=== PATIENT | male | born 1990 ===

== ENCOUNTER 2017-05-12 12:41 | Inpatient (IN) | payer OTHER ==
[2017-05-12 12:49] VITALS: O2SAT 100
[2017-05-12] MEDS ORDERED: Sodium Chloride 0.9% 1,000 ML IV STA ×2 (13:18→14:57)
--- NOTE | 2017-05-12 13:28 | ED PDOC ---
HPI: CCC, URI, Sore Throat Time Seen by Provider: 05/12/17 12:53 Chief Complaint (Nursing): Flu-like Symptoms Chief Complaint (Provider): Flu-like symptoms History Per: Patient, Family (sister) History/Exam Limitations: no limitations Onset/Duration Of Symptoms: Days (x1 month) Current Symptoms Are (Timing): Still Present Location Of Pain: Headache Associated Symptoms: Fever, Cough, Nausea, Vomiting, Other (rash) Ear Symptoms: Bilateral: None Severity: Mild Additional Complaint(s): Camron Abreu is a 26 year old male, with no past medical history, who presents to the emergency department accompanied by sister complaining of fever , cough, headache, loss of appetite, nausea, and pos-tussive vomiting x1 month, worse in the last week. Patient also reports a non itchy rash on his body since yesterday, and was noted to have a fever. He states he saw a PMD (Out of area) yesterday who gave him prescriptions for Z.pack, Certirazine and Prednisone. Per sister, patient was in so much pain and so weak this morning that he couldn' t stand up. He denies taking any medication for the fever, or receiving a flu shot this year. No other medical complaints. Pt denies nay diarrhea, neck pain chest pain or SOB. Pt given mask in triage and currently wearing in ED room PMD: located in [facility] Past Medical History Reviewed: Historical Data, Nursing Documentation, Vital Signs Vital Signs: Last Vital Signs Temp 101.7 F H 05/12/17 15:26 Pulse 103 H 05/12/17 14:53 Resp 20 05/12/17 14:52 BP 128/62 05/12/17 14:52 Pulse Ox 100 05/12/17 14:57 - Medical History PMH: No Chronic Diseases - Surgical History Surgical History: No Surg Hx - Family History Family History: States: Unknown Family Hx - Social History Current smoker - smoking cessation education provided: No Alcohol: None Drugs: Denies - Home Medications Home Medications: Ambulatory Orders Medication Instructions Recorded Azithromycin [Z-Jese] 250 mg PO DAILY 05/12/17 Cetirizine HCl [All Day Allergy] 10 mg PO DAILY 05/12/17 Prednisolone [Millipred] 20 mg PO DAILY 05/12/17 - Allergies Allergies/Adverse Reactions: Allergies Allergy/AdvReac Type Severity Reaction Status Date / Time No Known Allergies Allergy Verified 05/12/17 13:00 Review of Systems ROS Statement: Except As Marked, All Systems Reviewed And Found Negative Constitutional: Positive for: Fever Respiratory: Positive for: Cough Gastrointestinal: Positive for: Nausea, Vomiting, Other (loss of appetite) Skin: Positive for: Rash (non itchy) Neurological: Positive for: Headache Physical Exam - Reviewed Nursing Documentation Reviewed: Yes Vital Signs Reviewed: Yes - Physical Exam Appears: Positive for: Non-toxic, No Acute Distress Head Exam: Positive for: ATRAUMATIC, NORMAL INSPECTION, NORMOCEPHALIC Skin: Positive for: Normal Color, Warm, Dry Eye Exam: Positive for: Normal appearance ENT: Positive for: Normal ENT Inspection, TM Is/Are (WNL), Nasal Congestion. Negative for: Pharyngeal Erythema, Tonsillar Exudate, Tonsillar Swelling Neck: Positive for: Normal, Painless ROM, Supple Cardiovascular/Chest: Positive for: Regular Rate, Rhythm. Negative for: Murmur Respiratory: Positive for: Normal Breath Sounds. Negative for: Accessory Muscle Use, Wheezing, Respiratory Distress Extremity: Positive for: Normal ROM. Negative for: Pedal Edema, Deformity, Swelling Neurologic/Psych: Positive for: Alert, Oriented - Laboratory Results Result Diagrams: 05/12/17 14:44 05/12/17 13:25 - ECG O2 Sat by Pulse Oximetry: 100 (RA) Pulse Ox Interpretation: Normal Medical Decision Making Medical Decision Making: Initial Impression: Viral Syndrome/Influenza Initial Plan: T: 101.7 P 117 POX: 100% BP: 107/41 --EKG --Blood Cultures --VBG Shock pannel --Comp Metabolic Panel --CBC w/ differential --Chest two views (PA/LAT) [RAD] --Motrin tab 600 mg PO --Sodium Chloride 1,000 ml IV 999 mls/hr --Influenza A B --reevaluation IV access established and treatment initiated with Motrin and Acetaminophen for fever and body aches. IVF running EKG: ST at 103 bpm, Incomplete RBBB, no acute ST changes, as read by ED MD Lactate resulted on VBG WNL Lab contacted sports book writer, Hgb 4.3 Platelets 21 Pt without known history of anemia. denies any rectal bleeding. Case discussed with ED MD, Dr. Chau, who presented to see and evaluate Pt at bedside. Pt moved into main ED and placed on Isolation. Repeat CBC obtained, Hgb 3.8. CHEM WNL Trop (-) Influenza (-) Consent obtained for blood transfusion and arrangements made for ICU admission ~ Scribe Attestation: Documented by Karlo Liu, acting as a scribe for Zeina Niño PA-C. Provider Scribe Attestation: All medical record entries made by the Scribe were at my direction and personally dictated by me. I have reviewed the chart and agree that the record accurately reflects my personal performance of the history, physical exam, medical decision making, and the department course for this patient. I have also personally directed, reviewed, and agree with the discharge instructions and disposition. Disposition - Clinical Impression Clinical Impression: Viral syndrome, Anemia - Patient ED Disposition Is Patient to be Admitted: Yes - Disposition Disposition Time: 15:40 Condition: FAIR Forms: [employer] (Jamaican)
[2017-05-12 14:26] LABS: ALB/GLOB RATIO 1.2 (1.0-2.1); ALBUMIN 3.5 g/dL (3.5-5.0); ALT/SGPT 31 U/L (21-72); AST/SGOT 32 U/L (17-59); BLOOD UREA NITROGEN 20 mg/dl (9-20); CALCIUM 8.6 mg/dL (8.4-10.2); GFR AFRICAN-AMERICAN > 60; GFR NON-AFRICAN AMERICAN > 60
[2017-05-12 14:52] LABS: VENOUS BLOOD GAS BASE EXCESS 2.4 mmol/L (0.0-2.0); VENOUS BLOOD GAS PCO2 38 mmHg (40-60); VENOUS BLOOD GAS PO2 26 mm/Hg (30-55); VENOUS BLOOD PH 7.45 (7.32-7.43)
[2017-05-12 14:56] LABS: BASO % 0.4 % (0.0-2.0); EOS % 0.5 % (0.0-4.0); LYMPH # 5.3 K/uL (1.0-4.3); LYMPH % 92.6 % (20.0-40.0); MEAN CORPUSCULAR HEMOGLOBIN 28.7 pg (27.0-31.0); MEAN CORPUSCULAR HGB CONC 35.1 g/dL (33.0-37.0); MEAN PLATELET VOLUME 6.4 fl (7.2-11.7); MONO # 0.1 K/uL (0.0-0.8); MONO % 2.6 % (0.0-10.0); NEUT # 0.2 K/uL (1.8-7.0); NEUT % 3.9 % (50.0-75.0); NRBC % 0.3 % (0.0-0.0); RBC 1.31 Mil/uL (4.40-5.90); WHITE BLOOD COUNT 5.7 K/uL (4.8-10.8)
[2017-05-12 15:03] LABS: BASO % 0.7 % (0.0-2.0); EOS % 0.5 % (0.0-4.0); LYMPH # 6.2 K/uL (1.0-4.3); MEAN CELL VOLUME 82.4 fl (80.0-94.0); MEAN CORPUSCULAR HGB CONC 35.2 g/dL (33.0-37.0); MEAN PLATELET VOLUME 6.3 fl (7.2-11.7); MONO # 0.1 K/uL (0.0-0.8); MONO % 1.4 % (0.0-10.0); NEUT # 0.3 K/uL (1.8-7.0); NEUT % 4.4 % (50.0-75.0); NRBC % 0.3 % (0.0-0.0); RBC 1.51 Mil/uL (4.40-5.90); WHITE BLOOD COUNT 6.7 K/uL (4.8-10.8)
[2017-05-12 15:15] LABS: HEMOGLOBIN 3.8 g/dL (12.0-18.0); PLATELET COUNT 21 K/uL (130-400)
[2017-05-12 15:17] LABS: HEMOGLOBIN 4.4 g/dL (12.0-18.0)
--- NOTE | 2017-05-12 16:05 | CP.PCM.HP ---
History of Present Illness - History of Present Illness History of Present Illness: CC: nausea and vomiting HPI: 26 year old male no past medical history, except for childhood hx of frequent epistaxis, no recent travel, no sick contacts or contacts who have traveled recently, presents with a 3 day history of severe worsening fatigue and generalized weakness, associated with dyspnea on exertion, nausea, NBNB emesis, anorexia. In the emergency room pt Tmax 101.7, HR 103-109, BP 128/62, saturating 100% RA. WBC 5.7 with lymph predominance, H/H 3.8/10.8, plt 21, PBS pending, normal renal function, TBili 1.9. Influenza neg, blood and urine cultures pending. Discussed with ER physician, Infectious Disease, and Hematology Oncology consulted as well. HD stable, NAD, admit to telemetry for further management. ROS: per HPI all other systems reviewed and negative. 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, works in restaurant, preps food Meds: none NKDA vitals reviewed GEN: +PALLOR, thin, WDWN, ALERT, COOPERATIVE HEENT: NCAT, PERRL, EOMI, mild scleral icterus HEART: RRR, +S1S2, NO MRG LUNG: CTAB, NO WRR ABD: SOFT, NT, ND, NO HSM, NO MASSES EXT: NORMAL PEDAL PULSES, GOOD CAPILLARY REFILL NEURO: AAOX3, STRENGTH EQUAL BILATERAL UPPER AND LOWER EXTREMITIES SKIN: WARM, DRY, +petechiae chest, abd, extremities PSYCH: NORMAL MOOD, NORMAL AFFECT Most Recent Lab Values WBC 5.7 K/uL (4.8-10.8) 05/12/17 14:44 RBC 1.31 Mil/uL (4.40-5.90) L 05/12/17 14:44 Hgb 3.8 g/dL (12.0-18.0) L* 05/12/17 14:44 Hct 10.8 % (35.0-51.0) L 05/12/17 14:44 MCV 82.0 fl (80.0-94.0) 05/12/17 14:44 MCH 28.7 pg (27.0-31.0) 05/12/17 14:44 MCHC 35.1 g/dL (33.0-37.0) 05/12/17 14:44 RDW 16.0 % (11.5-14.5) H 05/12/17 14:44 Plt Count 21 K/uL (130-400) L* 05/12/17 14:44 MPV 6.4 fl (7.2-11.7) L 05/12/17 14:44 Neut % (Auto) 3.9 % (50.0-75.0) L 05/12/17 14:44 Lymph % (Auto) 92.6 % (20.0-40.0) H 05/12/17 14:44 [place] % (Auto) 2.6 % (0.0-10.0) 05/12/17 14:44 Eos % (Auto) 0.5 % (0.0-4.0) 05/12/17 14:44 Baso % (Auto) 0.4 % (0.0-2.0) 05/12/17 14:44 Neut # 0.2 K/uL (1.8-7.0) L 05/12/17 14:44 Lymph # 5.3 K/uL (1.0-4.3) H 05/12/17 14:44 [place] # 0.1 K/uL (0.0-0.8) 05/12/17 14:44 Eos # 0.0 K/uL (0.0-0.7) 05/12/17 14:44 Baso # 0.0 K/uL (0.0-0.2) 05/12/17 14:44 pO2 26 mm/Hg (30-55) L 05/12/17 14:49 VBG pH 7.45 (7.32-7.43) H 05/12/17 14:49 VBG pCO2 38 mmHg (40-60) L 05/12/17 14:49 VBG HCO3 25.6 mmol/L 05/12/17 14:49 VBG Total CO2 27.6 mmol/L (22-28) 05/12/17 14:49 VBG Base Excess 2.4 mmol/L (0.0-2.0) H 05/12/17 14:49 VBG Potassium 3.6 mmol/L (3.6-5.2) 05/12/17 14:49 A-a O2 Difference 76.0 mm/Hg 05/12/17 14:49 Sodium 136.0 mmol/L (132-148) 05/12/17 14:49 Chloride 106.0 mmol/L (98-107) 05/12/17 14:49 Glucose 105 mg/dL (75-110) 05/12/17 14:49 Lactate 0.9 mmol/L (0.7-2.1) 05/12/17 14:49 FiO2 21.0 % 05/12/17 14:49 Crit Value Called To Dr felix decker 05/12/17 14:49 Crit Value Called By 15 05/12/17 14:49 Crit Value Read Back Y 05/12/17 14:49 Blood Gas Notified Time 1452 05/12/17 14:49 Sodium 138 mmol/l (132-148) 05/12/17 13:25 Potassium 3.9 MMOL/L (3.6-5.0) 05/12/17 13:25 Chloride 103 mmol/L (98-107) 05/12/17 13:25 Carbon Dioxide 29 mmol/L (22-30) 05/12/17 13:25 Anion Gap 10 (10-20) 05/12/17 13:25 BUN 20 mg/dl (9-20) 05/12/17 13:25 Creatinine 0.8 mg/dl (0.8-1.5) 05/12/17 13:25 Est GFR ( Amer) > 60 05/12/17 13:25 Est GFR (Non-Af Amer) > 60 05/12/17 13:25 Random Glucose 104 mg/dL (75-110) 05/12/17 13:25 Calcium 8.6 mg/dL (8.4-10.2) 05/12/17 13:25 Total Bilirubin 1.9 mg/dl (0.2-1.3) H 05/12/17 13:25 AST 32 U/L (17-59) 05/12/17 13:25 ALT 31 U/L (21-72) 05/12/17 13:25 Alkaline Phosphatase 46 U/L (38-126) 05/12/17 13:25 Troponin I < 0.0120 ng/mL (0.00-0.120) 05/12/17 13:25 Total Protein 6.4 G/DL (6.3-8.2) 05/12/17 13:25 Albumin 3.5 g/dL (3.5-5.0) 05/12/17 13:25 Globulin 2.9 gm/dL (2.2-3.9) 05/12/17 13:25 Albumin/Globulin Ratio 1.2 (1.0-2.1) 05/12/17 13:25 Venous Blood Potassium 3.6 mmol/L (3.6-5.2) 05/12/17 14:49 Influenza Typ A,B (EIA) Negative for flu a/b (NEGATIVE) 05/12/17 13:25 BBK History Checked No verified bt 05/12/17 16:20 IMAGING STUDIES: EKG: +tachycardia ASSESSMENT AND PLAN: 26 year old male no past medical history, except for childhood hx of frequent epistaxis, no recent travel, no sick contacts or contacts who have traveled recently, presents with a 3 day history of severe worsening fatigue and generalized weakness, associated with dyspnea on exertion, nausea, NBNB emesis, anorexia. In the emergency room pt Tmax 101.7, HR 103-109, BP 128/62, saturating 100% RA. WBC 5.7 with lymph predominance, H/H 3.8/10.8, Plt 21, PBS pending, normal renal function, TBili 1.9. Influenza neg, blood and urine cultures pending. 3 units PRBC transfusion pending. Discussed with ER physician , Infectious Disease, and Hematology Oncology consulted as well. HD stable, NAD , admit to telemetry for further management. SIRS pt presented with 3 day hx of nausea, anorexia, NBNB emesis WBC 5.7K with lymph predominance, fever 101.7 on admission Infectious Disease Consult with Dr. Lisbeth Klein, appreciated and followed Ceftriaxone 1 gm daily initiated (05/12/17) Blood and urine cultures pending, as well as Dengue and Malaria Rapid HIV also pending Abdominal US pending Severe Anemia Thrombocytopenia with petechiae 3 units PRBC pending, awaiting transfusion Hematology Oncology Consult with Dr. Miguel Ortiz appreciated and followed Anemia workup: Iron, Ferritin, TIBC, retic count, B12, folate, Haptoglobin, LDH, Methymalonic acid, D Dimer, Fibrinogen Pt is HD stable, other than mild tachycardia VTE ppx thrombocytopenia Present on Admission - Present on Admission Any Indicators Present on Admission: No Past Patient History - Past Social History Alcohol: None Drugs: Denies - PSYCHIATRIC Hx Substance Use: No - SURGICAL HISTORY Hx Surgeries: No Meds Allergies/Adverse Reactions: Allergies Allergy/AdvReac Type Severity Reaction Status Date / Time No Known Allergies Allergy Verified 05/12/17 13:00 Results - Vital Signs Recent Vital Signs: Last Vital Signs Temp 101.7 F H 05/12/17 15:26 Pulse 103 H 05/12/17 14:53 Resp 20 05/12/17 14:52 BP 128/62 05/12/17 14:52 Pulse Ox 100 05/12/17 15:43 - Labs Result Diagrams: 05/12/17 14:44 05/12/17 13:25 Labs: Laboratory Results - last 24 hr 05/12/17 05/12/17 05/12/17 13:25 13:25 13:25 WBC 6.7 RBC 1.51 L Hgb 4.4 L* Hct 12.5 L MCV 82.4 MCH 29.0 MCHC 35.2 RDW 16.0 H Plt Count 23 L* MPV 6.3 L Neut % (Auto) 4.4 L Lymph % (Auto) 93.0 H [place] % (Auto) 1.4 Eos % (Auto) 0.5 Baso % (Auto) 0.7 Neut # 0.3 L Lymph # 6.2 H [place] # 0.1 Eos # 0.0 Baso # 0.0 pO2 VBG pH VBG pCO2 VBG HCO3 VBG Total CO2 VBG Base Excess VBG Potassium A-a O2 Difference Glucose Lactate FiO2 Crit Value Called To Crit Value Called By Crit Value Read Back Blood Gas Notified Time Sodium 138 Potassium 3.9 Chloride 103 Carbon Dioxide 29 Anion Gap 10 BUN 20 Creatinine 0.8 Est GFR ( Amer) > 60 Est GFR (Non-Af Amer) > 60 Random Glucose 104 Calcium 8.6 Total Bilirubin 1.9 H AST 32 ALT 31 Alkaline Phosphatase 46 Troponin I < 0.0120 Total Protein 6.4 Albumin 3.5 Globulin 2.9 Albumin/Globulin Ratio 1.2 Venous Blood Potassium Influenza Typ A,B (EIA) Negative for flu a/b 05/12/17 05/12/17 14:44 14:49 WBC 5.7 RBC 1.31 L Hgb 3.8 L* Hct 10.8 L MCV 82.0 MCH 28.7 MCHC 35.1 RDW 16.0 H Plt Count 21 L* MPV 6.4 L Neut % (Auto) 3.9 L Lymph % (Auto) 92.6 H [place] % (Auto) 2.6 Eos % (Auto) 0.5 Baso % (Auto) 0.4 Neut # 0.2 L Lymph # 5.3 H [place] # 0.1 Eos # 0.0 Baso # 0.0 pO2 26 L VBG pH 7.45 H VBG pCO2 38 L VBG HCO3 25.6 VBG Total CO2 27.6 VBG Base Excess 2.4 H VBG Potassium 3.6 A-a O2 Difference 76.0 Glucose 105 Lactate 0.9 FiO2 21.0 Crit Value Called To Dr felix decker Crit Value Called By 15 Crit Value Read Back Y Blood Gas Notified Time 1452 Sodium 136.0 Potassium Chloride 106.0 Carbon Dioxide Anion Gap BUN Creatinine Est GFR ( Amer) Est GFR (Non-Af Amer) Random Glucose Calcium Total Bilirubin AST ALT Alkaline Phosphatase Troponin I Total Protein Albumin Globulin Albumin/Globulin Ratio Venous Blood Potassium 3.6 Influenza Typ A,B (EIA)
[2017-05-12 17:40] LABS: BLASTS 54 % (0-0); LYMPHOCYTE 36 % (20-50); MONOCYTE 4 % (0-10); NEUTROPHIL 6 % (42-75); PLATELET ESTIMATE DECREASED (NORMAL); TOTAL CELLS COUNTED 100
[2017-05-12 17:43] LABS: ANISOCYTOSIS MODERATE
[2017-05-12 17:44] LABS: HYPOCHROMIC SLIGHT; MICROCYTOSIS MODERATE; POIKILOCYTOSIS SLIGHT
[2017-05-12 18:25] LABS: IRON 151 ug/dL (49-181)
[2017-05-12 18:40] LABS: TOTAL IRON BINDING CAPACITY 201 ug/dL (250-450)
[2017-05-12 18:44] LABS: % IRON SATURATION 75 % (20-55)
--- NOTE | 2017-05-12 18:50 | US ---
HISTORY: nausea, vomiting, splenomegaly? COMPARISON: None. TECHNIQUE: Grayscale imaging was performed. FINDINGS: LIVER: Measures 15.2 cm. Normal echogenicity of the liver parenchyma. No mass. No intrahepatic bile duct dilatation. GALLBLADDER: There is a solitary mobile gallstone. The gallbladder is well distended without wall thickening or pericholecystic fluid. The sonographic Bains's sign is negative. COMMON BILE DUCT: Measures 4.0 mm. No stones. No dilatation. PANCREAS: Normal in size and echotexture. No mass. No ductal dilatation. RIGHT KIDNEY: Measures 10.4cm. Normal echogenicity. No calculus, mass, or hydronephrosis. LEFT KIDNEY: Measures 10.2cm. Normal echogenicity. No calculus, mass, or hydronephrosis. SPLEEN: There is mild splenomegaly. The spleen measures 14.5 cm. Normal echotexture. AORTA: No aneurysmal dilatation. IVC: Unremarkable. OTHER FINDINGS: None. IMPRESSION: 1. Cholelithiasis. 2. Mild splenomegaly.
[2017-05-12] MEDS ORDERED: cefTRIAXone (Rocephin) 1 gm Inj ONE (18:52)
[2017-05-12 19:01] LABS: INR 1.3 (0.9-1.2); PROTHROMBIN TIME 14.3 Seconds (9.8-13.1)
[2017-05-12 19:09] LABS: PARTIAL THROMBOPLASTIN TIME 33.2 Seconds (25.6-37.1)
[2017-05-12 20:36] LABS: SQUAMOUS EPITHIAL < 1 /hpf (0-5); URINE AMORPHOUS SEDIMENT RARE /ul (<OCC); URINE BACTERIA RARE (<OCC); URINE BILIRUBIN NEGATIVE (NEGATIVE); URINE BLOOD NEGATIVE (NEGATIVE); URINE CLARITY SLIGHTY-CLOUDY (Clear); URINE COLOR YELLOW (YELLOW); URINE GLUCOSE (UA) NEG (Normal); URINE LEUKOCYTE ESTERASE NEG Leu/uL (Negative); URINE NITRATE NEGATIVE (NEGATIVE); URINE PROTEIN NEGATIVE (NEGATIVE)
--- NOTE | 2017-05-13 08:32 | CARD ---
APPROVED REPORT EKG Measurement Heart [id number] <Conclusion> Sinus tachycardia Incomplete right bundle branch block Borderline baseline artefact
--- NOTE | 2017-05-13 11:36 | CP.PCM.CON ---
History of Present Illness - History of Present Illness History of Present Illness: 26 year old male with past medical history presenting to the ER with progressive fatigue, found to be severely anemic and thrombocytopenic. The patient notes to progressive fatigue, shortness of breath, and fevers for about 1 week. He denies abnormal bleeding and bruising. Blood work in the ER revealed a hgb of 3.4 and plt count of 21. Review of the peripheral smear is concerning for immature cells, likely lymphoblasts. Past medical history: None Past surgical history: None Family history: Denies hematologic and oncologic problems Social history: Denies tobacco, alcohol, and illicit drug use. Allergies: NKA Review of systems: All remaining review of systems including HEENT, cardiovacsular, respiratory, gastrointestinal, genitourinary, musculoskeletal, dermatologic, neurologic, and psychiatric are negative unless mentioned in the HPI. Past Patient History - Past Medical History & Family History Past Medical History?: No - Past Social History Smoking Status: Never Smoked - CARDIAC Hx Cardiac Disorders: No - PULMONARY Hx Respiratory Disorders: No - NEUROLOGICAL Hx Neurological Disorder: No - HEENT Hx HEENT Problems: No - RENAL Hx Chronic Kidney Disease: No - ENDOCRINE/METABOLIC Hx Endocrine Disorders: No - HEMATOLOGICAL/ONCOLOGICAL Hx Blood Disorders: No - INTEGUMENTARY Hx Dermatological Problems: No - MUSCULOSKELETAL/RHEUMATOLOGICAL Hx Musculoskeletal Disorders: No Hx Falls: No - GASTROINTESTINAL Hx Gastrointestinal Disorders: No - GENITOURINARY/GYNECOLOGICAL Hx Genitourinary Disorders: No - PSYCHIATRIC Hx Psychophysiologic Disorder: No Hx Substance Use: No - SURGICAL HISTORY Hx Surgeries: No - ANESTHESIA Hx Anesthesia: No Hx Anesthesia Reactions: No Hx Malignant Hyperthermia: No Has any member of the family had a problem w/ anesthesia?: No Meds Home Medications: Home Medication List Medication Instructions Recorded Confirmed Type cefTRIAXone 1 gm [Rocephin 1 gram 1 gm IVPB DAILY #1 bag 05/13/17 Rx IVPB (D5W)] Allergies/Adverse Reactions: Allergies Allergy/AdvReac Type Severity Reaction Status Date / Time No Known Allergies Allergy Verified 05/12/17 13:00 - Medications Medications: Current Medications Cyanocobalamin (Vitamin B12 1000 Mcg/Ml Inj) 1,000 mcg IM DAILY SLY Stop: 05/15/17 09:01 Last Admin: 05/13/17 09:43 Dose: 1,000 mcg Ceftriaxone Sodium 1 gm/ (Sodium Chloride) 100 mls @ 100 mls/hr IVPB DAILY SLY PRN Reason: Protocol Last Admin: 05/13/17 08:55 Dose: 100 mls/hr Physical Exam - Head Exam Head Exam: ATRAUMATIC - Eye Exam Eye Exam: Normal appearance - ENT Exam ENT Exam: Mucous Membranes Dry - Respiratory Exam Respiratory Exam: NORMAL BREATHING PATTERN - Cardiovascular Exam Cardiovascular Exam: +S1, +S2 - GI/Abdominal Exam GI & Abdominal Exam: Normal Bowel Sounds - Extremities Exam Extremities exam: Positive for: normal inspection - Neurological Exam Neurological exam: Oriented x3 - Psychiatric Exam Psychiatric exam: Normal Affect, Normal Mood - Skin Skin Exam: Warm Results - Vital Signs Recent Vital Signs: Last Vital Signs Temp 98.9 F 05/13/17 08:00 Pulse 69 05/13/17 08:00 Resp 18 05/13/17 08:00 BP 106/64 05/13/17 08:00 Pulse Ox 100 05/13/17 08:00 - Labs Result Diagrams: 05/13/17 11:50 05/13/17 11:50 Labs: Laboratory Results - last 24 hr 05/12/17 05/12/17 05/12/17 13:25 13:25 13:25 WBC 6.7 RBC 1.51 L Hgb 4.4 L* Hct 12.5 L MCV 82.4 MCH 29.0 MCHC 35.2 RDW 16.0 H Plt Count 23 L* MPV 6.3 L Neut % (Auto) 4.4 L Lymph % (Auto) 93.0 H [place] % (Auto) 1.4 Eos % (Auto) 0.5 Baso % (Auto) 0.7 Neut # 0.3 L Lymph # 6.2 H [place] # 0.1 Eos # 0.0 Baso # 0.0 Neutrophils % (Manual) Lymphocytes % (Manual) Monocytes % (Manual) Blast Cells % Platelet Estimate RBC Morphology Hypochromasia (manual) Poikilocytosis (manual Anisocytosis (manual) Microcytosis (manual) Retic Count Haptoglobin PT INR APTT Fibrinogen D-Dimer, Quantitative pO2 VBG pH VBG pCO2 VBG HCO3 VBG Total CO2 VBG Base Excess VBG Potassium A-a O2 Difference Glucose Lactate FiO2 Crit Value Called To Crit Value Called By Crit Value Read Back Blood Gas Notified Time Sodium 138 Potassium 3.9 Chloride 103 Carbon Dioxide 29 Anion Gap 10 BUN 20 Creatinine 0.8 Est GFR ( Amer) > 60 Est GFR (Non-Af Amer) > 60 Random Glucose 104 Calcium 8.6 Iron TIBC % Saturation Ferritin Total Bilirubin 1.9 H AST 32 ALT 31 Alkaline Phosphatase 46 Lactate Dehydrogenase Troponin I < 0.0120 Total Protein 6.4 Albumin 3.5 Globulin 2.9 Albumin/Globulin Ratio 1.2 Vitamin B12 Venous Blood Potassium Urine Color Urine Clarity Urine pH Ur Specific [place] Urine Protein Urine Glucose (UA) Urine Ketones Urine Blood Urine Nitrate Urine Bilirubin Urine Urobilinogen Ur Leukocyte Esterase Urine RBC (Auto) Urine Microscopic WBC Ur Squamous Epith Cells Amorphous Sediment Urine Bacteria HIV-1 Ab Rapid Screen Influenza Typ A,B (EIA) Negative for flu a/b Blood Type Blood Type Confirm Antibody Screen Crossmatch BBK History Checked 05/12/17 05/12/17 05/12/17 14:44 14:49 16:20 WBC 5.7 RBC 1.31 L Hgb 3.8 L* Hct 10.8 L MCV 82.0 MCH 28.7 MCHC 35.1 RDW 16.0 H Plt Count 21 L* MPV 6.4 L Neut % (Auto) 3.9 L Lymph % (Auto) 92.6 H [place] % (Auto) 2.6 Eos % (Auto) 0.5 Baso % (Auto) 0.4 Neut # 0.2 L Lymph # 5.3 H [place] # 0.1 Eos # 0.0 Baso # 0.0 Neutrophils % (Manual) 6 L Lymphocytes % (Manual) 36 Monocytes % (Manual) 4 Blast Cells % 54 H Platelet Estimate Decreased L RBC Morphology Hypochromasia (manual) Slight Poikilocytosis (manual Slight Anisocytosis (manual) Moderate Microcytosis (manual) Moderate Retic Count Haptoglobin PT INR APTT Fibrinogen D-Dimer, Quantitative pO2 26 L VBG pH 7.45 H VBG pCO2 38 L VBG HCO3 25.6 VBG Total CO2 27.6 VBG Base Excess 2.4 H VBG Potassium 3.6 A-a O2 Difference 76.0 Glucose 105 Lactate 0.9 FiO2 21.0 Crit Value Called To Dr felix decker Crit Value Called By 15 Crit Value Read Back Y Blood Gas Notified Time 1452 Sodium 136.0 Potassium Chloride 106.0 Carbon Dioxide Anion Gap BUN Creatinine Est GFR ( Amer) Est GFR (Non-Af Amer) Random Glucose Calcium Iron TIBC % Saturation Ferritin Total Bilirubin AST ALT Alkaline Phosphatase Lactate Dehydrogenase Troponin I Total Protein Albumin Globulin Albumin/Globulin Ratio Vitamin B12 Venous Blood Potassium 3.6 Urine Color Urine Clarity Urine pH Ur Specific [place] Urine Protein Urine Glucose (UA) Urine Ketones Urine Blood Urine Nitrate Urine Bilirubin Urine Urobilinogen Ur Leukocyte Esterase Urine RBC (Auto) Urine Microscopic WBC Ur Squamous Epith Cells Amorphous Sediment Urine Bacteria HIV-1 Ab Rapid Screen Influenza Typ A,B (EIA) Blood Type O POSITIVE Blood Type Confirm Antibody Screen Negative Crossmatch See Detail BBK History Checked No verified bt 05/12/17 05/12/17 05/12/17 16:20 16:46 17:10 WBC RBC Hgb Hct MCV MCH MCHC RDW Plt Count MPV Neut % (Auto) Lymph % (Auto) [place] % (Auto) Eos % (Auto) Baso % (Auto) Neut # Lymph # [place] # Eos # Baso # Neutrophils % (Manual) Lymphocytes % (Manual) Monocytes % (Manual) Blast Cells % Platelet Estimate RBC Morphology Hypochromasia (manual) Poikilocytosis (manual Anisocytosis (manual) Microcytosis (manual) Retic Count Haptoglobin PT INR APTT Fibrinogen D-Dimer, Quantitative pO2 VBG pH VBG pCO2 VBG HCO3 VBG Total CO2 VBG Base Excess VBG Potassium A-a O2 Difference Glucose Lactate FiO2 Crit Value Called To Crit Value Called By Crit Value Read Back Blood Gas Notified Time Sodium Potassium Chloride Carbon Dioxide Anion Gap BUN Creatinine Est GFR ( Amer) Est GFR (Non-Af Amer) Random Glucose Calcium Iron TIBC % Saturation Ferritin 723.0 H Total Bilirubin AST ALT Alkaline Phosphatase Lactate Dehydrogenase 2811 H Troponin I Total Protein Albumin Globulin Albumin/Globulin Ratio Vitamin B12 207 L Venous Blood Potassium Urine Color Urine Clarity Urine pH Ur Specific [place] Urine Protein Urine Glucose (UA) Urine Ketones Urine Blood Urine Nitrate Urine Bilirubin Urine Urobilinogen Ur Leukocyte Esterase Urine RBC (Auto) Urine Microscopic WBC Ur Squamous Epith Cells Amorphous Sediment Urine Bacteria HIV-1 Ab Rapid Screen Non reactive Influenza Typ A,B (EIA) Blood Type Blood Type Confirm O POSITIVE Antibody Screen Crossmatch BBK History Checked 05/12/17 05/12/17 05/12/17 17:10 18:00 18:20 WBC RBC Hgb Hct MCV MCH MCHC RDW Plt Count MPV Neut % (Auto) Lymph % (Auto) [place] % (Auto) Eos % (Auto) Baso % (Auto) Neut # Lymph # [place] # Eos # Baso # Neutrophils % (Manual) Lymphocytes % (Manual) Monocytes % (Manual) Blast Cells % Platelet Estimate RBC Morphology Hypochromasia (manual) Poikilocytosis (manual Anisocytosis (manual) Microcytosis (manual) Retic Count Cancelled Haptoglobin PT 14.3 H INR 1.3 H APTT 33.2 Fibrinogen 304 D-Dimer, Quantitative 1882 H pO2 VBG pH VBG pCO2 VBG HCO3 VBG Total CO2 VBG Base Excess VBG Potassium A-a O2 Difference Glucose Lactate FiO2 Crit Value Called To Crit Value Called By Crit Value Read Back Blood Gas Notified Time Sodium Potassium Chloride Carbon Dioxide Anion Gap BUN Creatinine Est GFR ( Amer) Est GFR (Non-Af Amer) Random Glucose Calcium Iron 151 TIBC 201 L % Saturation 75 H Ferritin Total Bilirubin AST ALT Alkaline Phosphatase Lactate Dehydrogenase Troponin I Total Protein Albumin Globulin Albumin/Globulin Ratio Vitamin B12 Venous Blood Potassium Urine Color Urine Clarity Urine pH Ur Specific [place] Urine Protein Urine Glucose (UA) Urine Ketones Urine Blood Urine Nitrate Urine Bilirubin Urine Urobilinogen Ur Leukocyte Esterase Urine RBC (Auto) Urine Microscopic WBC Ur Squamous Epith Cells Amorphous Sediment Urine Bacteria HIV-1 Ab Rapid Screen Influenza Typ A,B (EIA) Blood Type Blood Type Confirm Antibody Screen Crossmatch BBK History Checked 05/12/17 05/12/17 05/12/17 19:13 19:50 19:58 WBC RBC Hgb Hct MCV MCH MCHC RDW Plt Count MPV Neut % (Auto) Lymph % (Auto) [place] % (Auto) Eos % (Auto) Baso % (Auto) Neut # Lymph # [place] # Eos # Baso # Neutrophils % (Manual) Lymphocytes % (Manual) Monocytes % (Manual) Blast Cells % Platelet Estimate RBC Morphology Hypochromasia (manual) Poikilocytosis (manual Anisocytosis (manual) Microcytosis (manual) Retic Count 2.0 H Haptoglobin <15 L PT INR APTT Fibrinogen D-Dimer, Quantitative pO2 VBG pH VBG pCO2 VBG HCO3 VBG Total CO2 VBG Base Excess VBG Potassium A-a O2 Difference Glucose Lactate FiO2 Crit Value Called To Crit Value Called By Crit Value Read Back Blood Gas Notified Time Sodium Potassium Chloride Carbon Dioxide Anion Gap BUN Creatinine Est GFR ( Amer) Est GFR (Non-Af Amer) Random Glucose Calcium Iron TIBC % Saturation Ferritin Total Bilirubin AST ALT Alkaline Phosphatase Lactate Dehydrogenase Troponin I Total Protein Albumin Globulin Albumin/Globulin Ratio Vitamin B12 Venous Blood Potassium Urine Color Yellow Urine Clarity Slighty-cloudy Urine pH 7.0 Ur Specific [place] 1.016 Urine Protein Negative Urine Glucose (UA) Neg Urine Ketones Negative Urine Blood Negative Urine Nitrate Negative Urine Bilirubin Negative Urine Urobilinogen 4.0 Ur Leukocyte Esterase Neg Urine RBC (Auto) 2 Urine Microscopic WBC < 1 Ur Squamous Epith Cells < 1 Amorphous Sediment Rare H Urine Bacteria Rare HIV-1 Ab Rapid Screen Influenza Typ A,B (EIA) Blood Type Blood Type Confirm Antibody Screen Crossmatch BBK History Checked Assessment & Plan - Assessment and Plan (Free Text) Assessment: 1. 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 Hubbard 2. Anemia/thrombocytopenia - likely secondary to leukemia - transfusion support Thank you for this interesting consult.
[2017-05-13 12:05] LABS: HEMOGLOBIN 7.7 g/dL (12.0-18.0); MEAN CELL VOLUME 84.6 fl (80.0-94.0); MEAN CORPUSCULAR HEMOGLOBIN 29.4 pg (27.0-31.0); MEAN CORPUSCULAR HGB CONC 34.7 g/dL (33.0-37.0); RBC 2.61 Mil/uL (4.40-5.90); RED CELL DISTRIBUTION WIDTH 16.8 % (11.5-14.5); WHITE BLOOD COUNT 4.8 K/uL (4.8-10.8)
[2017-05-13 12:14] LABS: ALB/GLOB RATIO 1.2 (1.0-2.1); ALBUMIN 3.4 g/dL (3.5-5.0); ALT/SGPT 26 U/L (21-72); AST/SGOT 30 U/L (17-59); BLOOD UREA NITROGEN 15 mg/dl (9-20); CALCIUM 8.2 mg/dL (8.4-10.2); GFR AFRICAN-AMERICAN > 60; GFR NON-AFRICAN AMERICAN > 60; MAGNESIUM 1.7 MG/DL (1.6-2.3)
[2017-05-13 12:21] LABS: INR 1.3 (0.9-1.2); PARTIAL THROMBOPLASTIN TIME 33.2 Seconds (25.6-37.1); PROTHROMBIN TIME 13.9 Seconds (9.8-13.1)
[2017-05-13 12:44] VITALS: RESP 20
--- NOTE | 2017-05-13 13:56 | CP.PCM.PN ---
Objective - Vital Signs/Intake and Output Vital Signs (last 24 hours): Temp Pulse Resp BP Pulse Ox 98.6 F 72 20 109/57 L 100 05/13/17 12:44 05/13/17 12:44 05/13/17 12:44 05/13/17 12:44 05/13/17 12:44 - Medications Medications: Current Medications Cyanocobalamin (Vitamin B12 1000 Mcg/Ml Inj) 1,000 mcg IM DAILY SLY Stop: 05/15/17 09:01 Last Admin: 05/13/17 09:43 Dose: 1,000 mcg Ceftriaxone Sodium 1 gm/ (Sodium Chloride) 100 mls @ 100 mls/hr IVPB DAILY SLY PRN Reason: Protocol Last Admin: 05/13/17 08:55 Dose: 100 mls/hr - Labs Labs: 05/13/17 11:50 05/13/17 11:50 PT 13.9 Seconds (9.8-13.1) H 05/13/17 11:50 INR 1.3 (0.9-1.2) H 05/13/17 11:50 APTT 33.2 Seconds (25.6-37.1) 05/13/17 11:50
--- NOTE | 2017-05-13 14:34 | CP.PCM.DIS ---
Provider - Provider Date of Admission: 05/12/17 15:53 Attending physician: Rekha Snow DO Consults: Hematology : Dr Ortiz ID : DR Keya Klein Time Spent in preparation of Discharge (in minutes): 35 Diagnosis - Discharge Diagnosis (1) Leukemia Status: Suspected (2) Anemia Status: Acute (3) Thrombocytopenia Status: Acute Hospital Course - Lab Results Lab Results: Most Recent Lab Values WBC 4.8 K/uL (4.8-10.8) 05/13/17 11:50 RBC 2.61 Mil/uL (4.40-5.90) L 05/13/17 11:50 Hgb 7.7 g/dL (12.0-18.0) L D 05/13/17 11:50 Hct 22.1 % (35.0-51.0) L 05/13/17 11:50 MCV 84.6 fl (80.0-94.0) D 05/13/17 11:50 MCH 29.4 pg (27.0-31.0) 05/13/17 11:50 MCHC 34.7 g/dL (33.0-37.0) 05/13/17 11:50 RDW 16.8 % (11.5-14.5) H 05/13/17 11:50 Plt Count 18 K/uL (130-400) L* 05/13/17 11:50 MPV 6.4 fl (7.2-11.7) L 05/12/17 14:44 Neut % (Auto) 3.9 % (50.0-75.0) L 05/12/17 14:44 Lymph % (Auto) 92.6 % (20.0-40.0) H 05/12/17 14:44 [place] % (Auto) 2.6 % (0.0-10.0) 05/12/17 14:44 Eos % (Auto) 0.5 % (0.0-4.0) 05/12/17 14:44 Baso % (Auto) 0.4 % (0.0-2.0) 05/12/17 14:44 Neut # 0.2 K/uL (1.8-7.0) L 05/12/17 14:44 Lymph # 5.3 K/uL (1.0-4.3) H 05/12/17 14:44 [place] # 0.1 K/uL (0.0-0.8) 05/12/17 14:44 Eos # 0.0 K/uL (0.0-0.7) 05/12/17 14:44 Baso # 0.0 K/uL (0.0-0.2) 05/12/17 14:44 Neutrophils % (Manual) 6 % (42-75) L 05/12/17 14:44 Lymphocytes % (Manual) 36 % (20-50) 05/12/17 14:44 Monocytes % (Manual) 4 % (0-10) 05/12/17 14:44 Blast Cells % 54 % (0-0) H 05/12/17 14:44 Platelet Estimate Decreased (NORMAL) L 05/12/17 14:44 RBC Morphology (NORMAL) 05/12/17 14:44 Hypochromasia (manual) Slight 05/12/17 14:44 Poikilocytosis (manual Slight 05/12/17 14:44 Anisocytosis (manual) Moderate 05/12/17 14:44 Microcytosis (manual) Moderate 05/12/17 14:44 Retic Count 2.0 % (0.5-1.5) H 05/12/17 19:58 Haptoglobin <15 mg/dL (43-212) L 05/12/17 19:50 PT 13.9 Seconds (9.8-13.1) H 05/13/17 11:50 INR 1.3 (0.9-1.2) H 05/13/17 11:50 APTT 33.2 Seconds (25.6-37.1) 05/13/17 11:50 Fibrinogen 304 mg/dl (200-400) 05/12/17 18:00 D-Dimer, Quantitative 1882 ng/mlDDU (0-230) H 05/12/17 18:00 pO2 26 mm/Hg (30-55) L 05/12/17 14:49 VBG pH 7.45 (7.32-7.43) H 05/12/17 14:49 VBG pCO2 38 mmHg (40-60) L 05/12/17 14:49 VBG HCO3 25.6 mmol/L 05/12/17 14:49 VBG Total CO2 27.6 mmol/L (22-28) 05/12/17 14:49 VBG Base Excess 2.4 mmol/L (0.0-2.0) H 05/12/17 14:49 VBG Potassium 3.6 mmol/L (3.6-5.2) 05/12/17 14:49 A-a O2 Difference 76.0 mm/Hg 05/12/17 14:49 Sodium 136.0 mmol/L (132-148) 05/12/17 14:49 Chloride 106.0 mmol/L (98-107) 05/12/17 14:49 Glucose 105 mg/dL (75-110) 05/12/17 14:49 Lactate 0.9 mmol/L (0.7-2.1) 05/12/17 14:49 FiO2 21.0 % 05/12/17 14:49 Crit Value Called To Dr felix decker 05/12/17 14:49 Crit Value Called By 15 05/12/17 14:49 Crit Value Read Back Y 05/12/17 14:49 Blood Gas Notified Time 1452 05/12/17 14:49 Sodium 137 mmol/l (132-148) 05/13/17 11:50 Potassium 3.3 MMOL/L (3.6-5.0) L 05/13/17 11:50 Chloride 100 mmol/L (98-107) 05/13/17 11:50 Carbon Dioxide 30 mmol/L (22-30) 05/13/17 11:50 Anion Gap 10 (10-20) 05/13/17 11:50 BUN 15 mg/dl (9-20) 05/13/17 11:50 Creatinine 0.7 mg/dl (0.8-1.5) L 05/13/17 11:50 Est GFR ( Amer) > 60 05/13/17 11:50 Est GFR (Non-Af Amer) > 60 05/13/17 11:50 Random Glucose 101 mg/dL (75-110) 05/13/17 11:50 Calcium 8.2 mg/dL (8.4-10.2) L 05/13/17 11:50 Phosphorus 3.3 mg/dl (2.5-4.5) 05/13/17 11:50 Magnesium 1.7 MG/DL (1.6-2.3) 05/13/17 11:50 Iron 151 ug/dL (49-181) 05/12/17 17:10 TIBC 201 ug/dL (250-450) L 05/12/17 17:10 % Saturation 75 % (20-55) H 05/12/17 17:10 Ferritin 723.0 ng/Ml (17.9-464) H 05/12/17 17:10 Total Bilirubin 2.2 mg/dl (0.2-1.3) H 05/13/17 11:50 AST 30 U/L (17-59) 05/13/17 11:50 ALT 26 U/L (21-72) 05/13/17 11:50 Alkaline Phosphatase 45 U/L (38-126) 05/13/17 11:50 Lactate Dehydrogenase 2811 U/L (313-618) H 05/12/17 17:10 Troponin I < 0.0120 ng/mL (0.00-0.120) 05/12/17 13:25 Total Protein 6.3 G/DL (6.3-8.2) 05/13/17 11:50 Albumin 3.4 g/dL (3.5-5.0) L 05/13/17 11:50 Globulin 2.8 gm/dL (2.2-3.9) 05/13/17 11:50 Albumin/Globulin Ratio 1.2 (1.0-2.1) 05/13/17 11:50 Vitamin B12 207 pg/mL (239-931) L 05/12/17 17:10 Venous Blood Potassium 3.6 mmol/L (3.6-5.2) 05/12/17 14:49 Urine Color Yellow (YELLOW) 05/12/17 19:13 Urine Clarity Slighty-cloudy (Clear) 05/12/17 19:13 Urine pH 7.0 (5.0-8.0) 05/12/17 19:13 Ur Specific [place] 1.016 (1.003-1.030) 05/12/17 19:13 Urine Protein Negative mg/dL (NEGATIVE) 05/12/17 19:13 Urine Glucose (UA) Neg mg/dL (Normal) 05/12/17 19:13 Urine Ketones Negative mg/dL (NEGATIVE) 05/12/17 19:13 Urine Blood Negative (NEGATIVE) 05/12/17 19:13 Urine Nitrate Negative (NEGATIVE) 05/12/17 19:13 Urine Bilirubin Negative (NEGATIVE) 05/12/17 19:13 Urine Urobilinogen 4.0 mg/dL (0.2-1.0) 05/12/17 19:13 Ur Leukocyte Esterase Neg [place]/uL (Negative) 05/12/17 19:13 Urine RBC (Auto) 2 /hpf (0-3) 05/12/17 19:13 Urine Microscopic WBC < 1 /hpf (0-5) 05/12/17 19:13 Ur Squamous Epith Cells < 1 /hpf (0-5) 05/12/17 19:13 Amorphous Sediment Rare /ul (<OCC) H 05/12/17 19:13 Urine Bacteria Rare (<OCC) 05/12/17 19:13 HIV-1 Ab Rapid Screen Non reactive (NON REAC) 05/12/17 16:20 Influenza Typ A,B (EIA) Negative for flu a/b (NEGATIVE) 05/12/17 13:25 Blood Type O POSITIVE 05/12/17 16:20 Blood Type Confirm O POSITIVE 05/12/17 16:46 Antibody Screen Negative 05/12/17 16:20 Crossmatch See Detail 05/12/17 16:20 BBK History Checked No verified bt 05/12/17 16:20 - Hospital Course Hospital Course: 26 year old male no past medical history, except for childhood hx of frequent epistaxis, no recent travel, no sick contacts or contacts who have traveled recently, presents with a 3 day history of severe worsening fatigue and generalized weakness, associated with dyspnea on exertion, nausea, NBNB emesis, anorexia. In the emergency room pt Tmax 101.7, HR 103-109, BP 128/62, saturating 100% RA. WBC 5.7 with lymph predominance, H/H 3.8/10.8, plt 21, normal renal function, TBili 1.9. Influenza negative. HIV negative. Pt was admitted to Telemetry and transfused 3 units PRBC. Hbg went up to 7.7. ID was consulted and recommended starting pt on IV Ceftriaxone. Pt's fever resolved . Hematology - Dr Ortiz was consulted and felt that pt may have Leukemia. CBC Diff showed [address] Ortiz referred pt to [facility] Leukemia specialist for higher level of care - pt was transferred to [facility]. Discharge Exam - Head Exam Head Exam: ATRAUMATIC, NORMAL INSPECTION, NORMOCEPHALIC - Eye Exam Eye Exam: EOMI, Normal appearance, PERRL Pupil Exam: NORMAL ACCOMODATION - ENT Exam ENT Exam: Mucous Membranes Moist, Normal External Ear Exam - Neck Exam Neck exam: Full Rom - Respiratory Exam Respiratory Exam: NORMAL BREATHING PATTERN. absent: Respiratory Distress - Cardiovascular Exam Cardiovascular Exam: REGULAR RHYTHM, +S1, +S2 - GI/Abdominal Exam GI & Abdominal Exam: Normal Bowel Sounds, Soft. absent: Tenderness - Extremities Exam Extremities exam: full ROM, normal capillary refill, pedal pulses present - Back Exam Back exam: absent: CVA tenderness (L), CVA tenderness (R) - Neurological Exam Neurological exam: Alert, CN II-XII Intact, Normal Gait, Oriented x3, Reflexes Normal - Psychiatric Exam Psychiatric exam: Normal Affect, Normal Mood - Skin Skin Exam: Dry, Normal Color, Petechiae, Warm Discharge Plan - Discharge Medications Prescriptions: cefTRIAXone 1 gm [Rocephin 1 gram IVPB (D5W)] 1 gm IVPB DAILY #1 bag - Follow Up Plan Condition: STABLE Disposition: Trans to Other Acute Care [facility] Additional Instructions: d/c pt to [facility] for higher level of care.
[2017-05-13 16:13] VITALS: BP 100/51; PULSE 73; TEMP 99.8
[2017-05-13 17:13] LABS: INTRACELLULAR PARASITE NEGATIVE (NEGATIVE)
[2017-05-13 17:51] LABS: FOLATE 9.3 ng/mL
== END 2017-05-13 19:30 | disposition short-term general hospital (02) | DRG 403 ==
LOC: H.ER 12:41 → H.ERHOLD 15:53 → H.TEL 21:59
PROVIDERS: ADMIT Student in an Organized Health Care Education/Training Program; ATTEND Student in an Organized Health Care Education/Training Program
PROC: 30233N1 Transfusion of Nonautologous Red Blood Cells into Peripheral Vein, Percutaneous Approach (ICD-10-PCS; 2017-05-12)
PROC: 6A550Z2 Pheresis of Platelets, Single (ICD-10-PCS; principal; 2017-05-13)
DX: C95.90 Leukemia, unspecified not having achieved remission (principal); D69.59 Other secondary thrombocytopenia; D63.0 Anemia in neoplastic disease